=== PATIENT | female | born 1950 | race Caucasian/White ===

== ENCOUNTER → 2017-12-15 | Outpatient (CLI) | payer OTHER | LOC: HYPER 12-08 13:46 | DX: S71.102A Unspecified open wound, left thigh, initial encounter (principal); M25.571 Pain in right ankle and joints of right foot; R53.1 Weakness; D53.9 Nutritional anemia, unspecified; Z86.718 Personal history of other venous thrombosis and embolism; X58.XXXA Exposure to other specified factors, initial encounter; Y93.89 Activity, other specified; Y92.89 Other specified places as the place of occurrence of the external cause; Y99.8 Other external cause status ==